=== PATIENT | female | born 1960 | race African-American/Black ===

== ENCOUNTER 2016-08-02 11:25 | Emergency (ER) | payer MEDICAID ==
[~2016-08-02] VITALS: Ht 162.6 cm; Wt 55.0 kg
[2016-08-02] MEDS ORDERED: KETOROLAC 30MG/ML VIAL IM STA (12:12)
[2016-08-02 14:24] VITALS: BP 125/74
== END 2016-08-02 14:25 | disposition home or self-care (01) ==
LOC: ER 12:37
DX: R05 Cough (principal); M94.0 Chondrocostal junction syndrome [Tietze]; F31.9 Bipolar disorder, unspecified; F12.10 Cannabis abuse, uncomplicated; F14.10 Cocaine abuse, uncomplicated
CPT/HCPCS: 71010; 93005; 96372; 99284; J1885; Z7610

== ENCOUNTER 2017-05-27 18:17 | Emergency (ER) | payer MEDICAID ==
[~2017-05-27] VITALS: Ht 162.6 cm; Wt 64.0 kg
[~2017-05-27 18:17] MED LIST: FOLI-43 PO; PNV1TABL76 PO; THIA100T13 PO
[2017-05-27 22:42] LABS: *AMPHETAMINES SCREEN URINE NEGATIVE (NEGATIVE); *BARBITURATES SCREEN URINE NEGATIVE (NEGATIVE); *BENZODIAZEPINES SCREEN URINE NEGATIVE (NEGATIVE); *COCAINE SCREEN URINE PRESUMTIVE POSITIVE (NEGATIVE); CANNABINOID URINE SCREEN NEGATIVE (NEGATIVE); METHADONE URINE SCREEN NEGATIVE (NEGATIVE); OPIATES URINE SCREEN NEGATIVE (NEGATIVE); PHENCYCLIDINE URINE SCREEN NEGATIVE (NEGATIVE)
[2017-05-27 23:05] LABS: BASOPHILS % 0.8 % (0.0-2.0); EOSINOPHILS % 3.3 % (0.0-5.0); HEMATOCRIT. 36.8 % (36.0-48.0); HEMOGLOBIN. 12.7 g/dL (12.0-16.0); LYMPHOCYTES % 40.2 % (20.0-50.0); MEAN CORPUSCULAR HEMOGLOBIN 35.5 pg (28.0-32.0); MEAN CORPUSCULAR VOLUME 102.4 fL (81.0-99.0); MEAN PLATELET VOLUME 7.2 fl (7.4-10.4); MONOCYTES % 12.2 % (2.0-8.0); NEUTROPHILS % 43.5 % (40.0-76.0); PLATELET 175 x1000/uL (130-400); RED BLOOD CELL COUNT 3.59 mill/uL (4.2-5.4); RED CELL DISTRIBUTION WIDTH 18.3 % (11.6-14.6)
[2017-05-27 23:10] LABS: CHLORIDE 108 mEq/L (98-107)
[2017-05-27 23:23] LABS: ETHANOL BLOOD 264 mg/dL
[2017-05-28] MEDS ORDERED: KETOROLAC 30MG/ML VIAL IV SCH (05:24)
[2017-05-28] MEDS ORDERED: KETOROLAC 30MG/ML VIAL IM SCH (05:45)
[2017-05-28 05:50] VITALS: BP 121/78
== END 2017-05-28 05:58 | disposition home or self-care (01) ==
LOC: ER 18:17
DX: S39.012A Strain of muscle, fascia and tendon of lower back, initial encounter (principal); M25.532 Pain in left wrist; M25.551 Pain in right hip; F10.129 Alcohol abuse with intoxication, unspecified; I10 Essential (primary) hypertension; F31.9 Bipolar disorder, unspecified; G43.909 Migraine, unspecified, not intractable, without status migrainosus; Y90.9 Presence of alcohol in blood, level not specified; Z90.49 Acquired absence of other specified parts of digestive tract; V03.10XA Pedestrian on foot injured in collision with car, pick-up truck or van in traffic accident, initial encounter; Y93.89 Activity, other specified; Y92.488 Other paved roadways as the place of occurrence of the external cause
CPT/HCPCS: 36415; 70450; 70490; 71111; 73110; 73502; 80048; 80305; 85025; 96372; 99285; G0482; J1885; Z7610

== ENCOUNTER 2017-11-01 18:58 | Emergency (ER) | payer MEDICAID, OTHER ==
[~2017-11-01] VITALS: Ht 157.5 cm; Wt 63.0 kg
[2017-11-01] MEDS ORDERED: KETOROLAC 60MG/2ML VIAL IM ONE (20:30)
[2017-11-01 21:36] LABS: CLARITY URINE CLOUDY (CLEAR); COLOR URINE DARK YELLOW (YELLOW); KETONES URINE TRACE (NEGATIVE); LEUKOCYTE ESTERASE URINE 2+ (NEGATIVE); NITRITE URINE NEGATIVE (NEGATIVE); OCCULT BLOOD URINE NEGATIVE (NEGATIVE); PROTEIN URINE TRACE (NEGATIVE); SPECIFIC GRAVITY URINE 1.036 (1.005-1.030)
[2017-11-01 23:37] LABS: EOSINOPHILS % 2.8 % (0.0-5.0); HEMOGLOBIN. 13.1 g/dL (12.0-16.0); LYMPHOCYTES % 47.7 % (20.0-50.0); MEAN CORPUSCULAR VOLUME 98.7 fL (81.0-99.0); MEAN PLATELET VOLUME 8.1 fl (7.4-10.4); MONOCYTES % 13.7 % (2.0-8.0); NEUTROPHILS % 34.8 % (40.0-76.0); PLATELET 139 x1000/uL (130-400); RED BLOOD CELL COUNT 3.85 mill/uL (4.2-5.4); RED CELL DISTRIBUTION WIDTH 13.8 % (11.6-14.6)
[2017-11-01 23:42] LABS: CHLORIDE 103 mEq/L (98-107)
[2017-11-02 00:55] VITALS: BP 121/78
== END 2017-11-02 00:55 | disposition home or self-care (01) ==
LOC: ER 19:04
DX: N30.90 Cystitis, unspecified without hematuria (principal)
CPT/HCPCS: 36415; 74176; 80053; 81003; 85025; 96372; 99285; J1885; Z7610

== ENCOUNTER 2018-03-27 23:07 | Emergency (ER) | payer MEDICAID ==
[~2018-03-27] VITALS: Ht 162.6 cm; Wt 71.0 kg
[2018-03-28 01:45] VITALS: BP 142/94
== END 2018-03-28 05:39 | disposition home or self-care (01) ==
LOC: ER 23:07
DX: S50.01XA Contusion of right elbow, initial encounter (principal); S30.0XXA Contusion of lower back and pelvis, initial encounter; I10 Essential (primary) hypertension; F12.10 Cannabis abuse, uncomplicated; F17.200 Nicotine dependence, unspecified, uncomplicated; Z90.49 Acquired absence of other specified parts of digestive tract; Z98.890 Other specified postprocedural states; Y04.2XXA Assault by strike against or bumped into by another person, initial encounter; Y93.89 Activity, other specified; Y92.018 Other place in single-family (private) house as the place of occurrence of the external cause
CPT/HCPCS: 72100; 73070; 99283

== ENCOUNTER 2018-04-17 20:58 | Emergency (ER) | payer MEDICAID ==
[~2018-04-17] VITALS: Ht 167.6 cm; Wt 68.0 kg
[2018-04-17] MEDS ORDERED: KETOROLAC 30MG/ML VIAL IM ONE (22:45)
[2018-04-18 00:23] VITALS: BP 105/69
== END 2018-04-18 00:54 | disposition home or self-care (01) ==
LOC: ER 20:58
DX: J02.9 Acute pharyngitis, unspecified (principal); F41.9 Anxiety disorder, unspecified; F31.9 Bipolar disorder, unspecified; F17.210 Nicotine dependence, cigarettes, uncomplicated; F14.10 Cocaine abuse, uncomplicated; Z90.49 Acquired absence of other specified parts of digestive tract; Z98.890 Other specified postprocedural states
CPT/HCPCS: 87070; 87430; 96372; 99283; J1885

== ENCOUNTER 2018-05-01 20:45 | Emergency (ER) | payer MEDICAID ==
[~2018-05-01] VITALS: Ht 162.6 cm; Wt 77.0 kg
[2018-05-01 20:53] VITALS: BP 148/84
== END 2018-05-02 00:25 | disposition left against medical advice (07) ==
LOC: ER 20:45
DX: Z53.21 Procedure and treatment not carried out due to patient leaving prior to being seen by health care provider (principal)

== ENCOUNTER 2018-07-01 16:32 | Emergency (ER) | payer MEDICAID ==
[~2018-07-01] VITALS: Ht 167.6 cm; Wt 75.0 kg
[2018-07-01 19:24] VITALS: BP 125/77
== END 2018-07-01 19:27 | disposition home or self-care (01) ==
LOC: ER 18:36
DX: H10.023 Other mucopurulent conjunctivitis, bilateral (principal); J06.9 Acute upper respiratory infection, unspecified; Z87.828 Personal history of other (healed) physical injury and trauma; Z98.890 Other specified postprocedural states
CPT/HCPCS: 99283

== ENCOUNTER 2018-07-18 19:17 | Emergency (ER) | payer MEDICAID ==
[~2018-07-18] VITALS: Ht 167.6 cm; Wt 58.0 kg
[2018-07-18] MEDS ORDERED: FLUORESCEIN SODIUM 1MG/STRIP RIGHTEYE ONE (21:00)
[2018-07-18] MEDS ORDERED: TETRACAINE 0.5% OPHTH DROPS 4ML RIGHTEYE ONE (21:00)
[2018-07-19 00:38] VITALS: BP 119/68
== END 2018-07-19 00:39 | disposition home or self-care (01) ==
LOC: ER 19:17
DX: S05.01XA Injury of conjunctiva and corneal abrasion without foreign body, right eye, initial encounter (principal); S00.11XA Contusion of right eyelid and periocular area, initial encounter; H11.31 Conjunctival hemorrhage, right eye; F31.9 Bipolar disorder, unspecified; F14.10 Cocaine abuse, uncomplicated; F12.10 Cannabis abuse, uncomplicated; F17.200 Nicotine dependence, unspecified, uncomplicated; Z79.899 Other long term (current) drug therapy; Z90.49 Acquired absence of other specified parts of digestive tract; Y08.89XA Assault by other specified means, initial encounter; Y93.89 Activity, other specified; Y92.89 Other specified places as the place of occurrence of the external cause; Y99.8 Other external cause status
CPT/HCPCS: 70486; 99284

== ENCOUNTER 2018-09-22 13:20 | Emergency (ER) | payer MEDICAID ==
[~2018-09-22] VITALS: Ht 162.6 cm; Wt 65.0 kg
[2018-09-22 13:39] VITALS: BP 131/73
== END 2018-09-22 16:06 | disposition left against medical advice (07) ==
LOC: ER 13:20
DX: M79.605 Pain in left leg (principal); Z53.21 Procedure and treatment not carried out due to patient leaving prior to being seen by health care provider

== ENCOUNTER 2018-09-22 19:31 | Emergency (ER) | payer MEDICAID ==
[~2018-09-22] VITALS: Ht 160 cm; Wt 65.1 kg
[2018-09-22 19:34] VITALS: BP 100/72
== END 2018-09-22 20:34 | disposition home or self-care (01) ==
LOC: ER 19:31
DX: S80.12XA Contusion of left lower leg, initial encounter (principal); K14.0 Glossitis; R58 Hemorrhage, not elsewhere classified; F31.9 Bipolar disorder, unspecified; F17.200 Nicotine dependence, unspecified, uncomplicated; F14.10 Cocaine abuse, uncomplicated; F12.10 Cannabis abuse, uncomplicated; Z90.49 Acquired absence of other specified parts of digestive tract; Z79.899 Other long term (current) drug therapy; W19.XXXA Unspecified fall, initial encounter; Y93.89 Activity, other specified; Y92.89 Other specified places as the place of occurrence of the external cause; Y99.8 Other external cause status
CPT/HCPCS: 99283

== ENCOUNTER 2018-11-23 22:05 | Emergency (ER) | payer MEDICAID ==
[~2018-11-23] VITALS: Ht 157.5 cm; Wt 64.0 kg
[2018-11-23] MEDS ORDERED: IBUPROFEN 600MG TABLET PO ONE (23:15)
[2018-11-23] MEDS ORDERED: DIPHENHYDRAMINE 25MG CAPSULE PO ONE (23:15)
[2018-11-23] MEDS ORDERED: KETOROLAC 60MG/2ML VIAL IM ONE (23:15)
[2018-11-24 00:21] VITALS: BP 155/89
== END 2018-11-24 00:23 | disposition home or self-care (01) ==
LOC: ER 22:05
DX: S60.562A Insect bite (nonvenomous) of left hand, initial encounter (principal); S60.561A Insect bite (nonvenomous) of right hand, initial encounter; S80.862A Insect bite (nonvenomous), left lower leg, initial encounter; S80.861A Insect bite (nonvenomous), right lower leg, initial encounter; F31.9 Bipolar disorder, unspecified; L29.9 Pruritus, unspecified; W57.XXXA Bitten or stung by nonvenomous insect and other nonvenomous arthropods, initial encounter; Y93.89 Activity, other specified; Y92.89 Other specified places as the place of occurrence of the external cause; Y99.8 Other external cause status
CPT/HCPCS: 96372; 99283; J1885; Q0163

== ENCOUNTER → 2018-12-13 | Emergency (ER) | payer MEDICAID | LOC: ER 11:44 | DX: M79.643 Pain in unspecified hand (principal); Z53.21 Procedure and treatment not carried out due to patient leaving prior to being seen by health care provider ==

== ENCOUNTER 2019-01-24 22:34 | Emergency (ER) | payer MEDICAID ==
[~2019-01-24] VITALS: Ht 160 cm; Wt 61.0 kg
[2019-01-25] MEDS ORDERED: KETOROLAC 60MG/2ML VIAL IM STA (02:21)
[2019-01-25] MEDS ORDERED: AMOXICILLIN/POTASSIUM CLAVULANATE 875/125MG TAB PO ONE (02:30)
[2019-01-25 03:02] VITALS: BP 135/108
== END 2019-01-25 03:04 | disposition home or self-care (01) ==
LOC: ER 22:34
DX: K04.7 Periapical abscess without sinus (principal); K02.9 Dental caries, unspecified; F12.10 Cannabis abuse, uncomplicated; F17.210 Nicotine dependence, cigarettes, uncomplicated; Z93.3 Colostomy status; Z90.49 Acquired absence of other specified parts of digestive tract; Z98.890 Other specified postprocedural states; Z86.19 Personal history of other infectious and parasitic diseases; Z87.828 Personal history of other (healed) physical injury and trauma
CPT/HCPCS: 96372; 99283; J1885

== ENCOUNTER 2019-04-21 00:08 | Emergency (ER) | payer MEDICAID ==
[~2019-04-21] VITALS: Ht 157.5 cm; Wt 62.0 kg
[2019-04-21] MEDS ORDERED: IBUPROFEN 600MG TABLET PO ONE (02:15)
[2019-04-21] MEDS ORDERED: HYDROCODONE/ACETAMINOPHEN 5/325MG TABLET PO ONE (05:30)
[2019-04-21 06:39] VITALS: BP 122/71
== END 2019-04-21 06:40 | disposition home or self-care (01) ==
LOC: ER 00:44
DX: M79.644 Pain in right finger(s) (principal); F14.10 Cocaine abuse, uncomplicated; F12.10 Cannabis abuse, uncomplicated; Z87.828 Personal history of other (healed) physical injury and trauma; Z90.49 Acquired absence of other specified parts of digestive tract; Z86.19 Personal history of other infectious and parasitic diseases
CPT/HCPCS: 73130; 99283

== ENCOUNTER 2019-04-22 17:09 | Emergency (ER) | payer MEDICAID ==
[~2019-04-22] VITALS: Ht 160 cm; Wt 56.0 kg
[2019-04-22 17:34] VITALS: BP 96/56
== END 2019-04-22 22:41 | disposition left against medical advice (07) ==
LOC: ER 17:17
DX: J11.1 Influenza due to unidentified influenza virus with other respiratory manifestations (principal); Z53.21 Procedure and treatment not carried out due to patient leaving prior to being seen by health care provider

== ENCOUNTER 2019-05-11 19:48 | Emergency (ER) | payer MEDICAID ==
[~2019-05-11] VITALS: Ht 165.1 cm; Wt 57.0 kg
[2019-05-12 01:40] VITALS: BP 137/85
== END 2019-05-12 02:03 | disposition home or self-care (01) ==
LOC: ER 19:48
DX: J40 Bronchitis, not specified as acute or chronic (principal); F15.10 Other stimulant abuse, uncomplicated; F14.10 Cocaine abuse, uncomplicated; Z93.3 Colostomy status; Z98.890 Other specified postprocedural states; Z87.828 Personal history of other (healed) physical injury and trauma
CPT/HCPCS: 71045; 99283

== ENCOUNTER 2019-08-03 17:04 | Emergency (ER) | payer MEDICAID ==
[~2019-08-03] VITALS: Ht 160 cm; Wt 47.0 kg
[2019-08-03] MEDS ORDERED: ACETAMINOPHEN 325MG TABLET PO ONE (17:30)
[2019-08-03 17:53] VITALS: BP 132/60
== END 2019-08-03 17:54 | disposition home or self-care (01) ==
LOC: ER 17:04
DX: M25.532 Pain in left wrist (principal); F14.10 Cocaine abuse, uncomplicated; F12.10 Cannabis abuse, uncomplicated; Z93.3 Colostomy status; Z79.899 Other long term (current) drug therapy
CPT/HCPCS: 29125; 99283

== ENCOUNTER 2019-08-23 22:29 | Emergency (ER) | payer MEDICAID ==
[~2019-08-23] VITALS: Ht 160 cm; Wt 55.8 kg
[2019-08-23] MEDS ORDERED: IBUPROFEN 600MG TABLET PO ONE (23:45)
[2019-08-24 00:50] VITALS: BP 151/91
== END 2019-08-24 00:58 | disposition home or self-care (01) ==
LOC: ER 22:29
DX: R10.9 Unspecified abdominal pain (principal); M79.18 Myalgia, other site; F41.9 Anxiety disorder, unspecified; F31.9 Bipolar disorder, unspecified; Z90.49 Acquired absence of other specified parts of digestive tract; F14.10 Cocaine abuse, uncomplicated; F12.10 Cannabis abuse, uncomplicated; Z79.899 Other long term (current) drug therapy
CPT/HCPCS: 71101; 72100; 99284

== ENCOUNTER 2020-01-03 15:22 | Emergency (ER) | payer MEDICAID ==
[~2020-01-03] VITALS: Ht 160 cm; Wt 65.0 kg
[2020-01-03 15:28] VITALS: BP 105/77
[2020-01-03] MEDS ORDERED: BACITRACIN ZINC OINT UDPKT TOP ONE (15:45)
== END 2020-01-03 16:57 | disposition home or self-care (01) ==
LOC: ER 16:30
DX: S49.81XA Other specified injuries of right shoulder and upper arm, initial encounter (principal); S80.212A Abrasion, left knee, initial encounter; F41.9 Anxiety disorder, unspecified; F32.9 Major depressive disorder, single episode, unspecified; F17.200 Nicotine dependence, unspecified, uncomplicated; W01.0XXA Fall on same level from slipping, tripping and stumbling without subsequent striking against object, initial encounter; Y93.9 Activity, unspecified; Y92.9 Unspecified place or not applicable; Z93.3 Colostomy status; Z90.49 Acquired absence of other specified parts of digestive tract
CPT/HCPCS: 29105; 73030; 99283

== ENCOUNTER 2020-02-26 11:07 | Emergency (ER) | payer MEDICAID ==
[~2020-02-26] VITALS: Ht 162.6 cm; Wt 59.0 kg
[2020-02-26 11:31] VITALS: BP 126/80
== END 2020-02-26 14:01 | disposition left against medical advice (07) ==
LOC: ER 11:07
DX: Z53.21 Procedure and treatment not carried out due to patient leaving prior to being seen by health care provider (principal)

== ENCOUNTER 2020-06-23 11:50 | Emergency (ER) | payer MEDICAID ==
[~2020-06-23] VITALS: Ht 165.1 cm; Wt 85.0 kg
[2020-06-23] MEDS ORDERED: ACETAMINOPHEN 325MG TABLET PO ONE (12:15)
[2020-06-23] MEDS ORDERED: DEXAMETHASONE 0.5MG/5ML ORAL SYR PO ONE (12:15)
[2020-06-23] MEDS ORDERED: DEXAMETHASONE 10 MG/ML VIAL PO NR (12:30)
[2020-06-23 18:49] VITALS: BP 116/64
[2020-06-23] MEDS ORDERED: ERYT1OIN6 EACHEYE (19:13)
== END 2020-06-23 19:05 | disposition home or self-care (01) ==
LOC: ER 11:50
DX: J06.9 Acute upper respiratory infection, unspecified (principal); F14.10 Cocaine abuse, uncomplicated; F12.10 Cannabis abuse, uncomplicated; F10.10 Alcohol abuse, uncomplicated; K76.9 Liver disease, unspecified; Z20.822 Contact with and (suspected) exposure to COVID-19; Y90.9 Presence of alcohol in blood, level not specified
CPT/HCPCS: 71045; 87070; 87430; 99284; C9803; J1100; U0003; J8540

== ENCOUNTER 2021-01-21 13:46 | Emergency (ER) | payer MEDICAID ==
[~2021-01-21] VITALS: Ht 167.6 cm; Wt 66.0 kg
[~2021-01-21 13:46] MED LIST changes: +ERYT1OIN6 EACHEYE
[2021-01-21] MEDS ORDERED: TETANUS, DIPHTHERIA, PERTUSSIS VAC/PF 0.5ML (>10YR OLD) IM ONE (15:30)
[2021-01-21] MEDS ORDERED: IBUPROFEN 600MG TABLET PO ONE (15:30)
[2021-01-21 15:50] VITALS: BP 116/80
[2021-01-21] MEDS ORDERED: BACITRACIN ZINC OINT UDPKT TOP ONE (17:15)
[2021-01-21] MEDS ORDERED: NAPR-681 PO (17:16)
[2021-01-21] MEDS ORDERED: SULF1TAB48 PO (17:16)
[2021-01-21] MEDS ORDERED: BO1 TP (17:16)
== END 2021-01-21 17:28 | disposition home or self-care (01) ==
LOC: ER 13:46
DX: M79.644 Pain in right finger(s) (principal); F12.10 Cannabis abuse, uncomplicated
CPT/HCPCS: 73140; 90471; 90715; 99283; Z7610

== ENCOUNTER 2021-01-24 13:14 | Emergency (ER) | payer MEDICAID ==
[~2021-01-24] VITALS: Ht 165.1 cm; Wt 54.0 kg
[~2021-01-24 13:14] MED LIST changes: +BO1 TP; +NAPR-681 PO; +SULF1TAB48 PO
[2021-01-24] MEDS ORDERED: IBUPROFEN 400MG TABLET PO ONE (14:00)
[2021-01-24] MEDS ORDERED: ACETAMINOPHEN 325MG TABLET PO ONE (14:00)
[2021-01-24 14:28] VITALS: BP 134/87
[2021-01-24] MEDS ORDERED: ACET-2708 MT (14:51)
[2021-01-24] MEDS ORDERED: NAPR-1176 MT (14:51)
[2021-01-24] MEDS ORDERED: AMOX-424 MT (14:51)
== END 2021-01-24 15:10 | disposition home or self-care (01) ==
LOC: ER 13:14
DX: K08.89 Other specified disorders of teeth and supporting structures (principal); R68.84 Jaw pain; F12.10 Cannabis abuse, uncomplicated; Z86.19 Personal history of other infectious and parasitic diseases
CPT/HCPCS: 81025; 99283

== ENCOUNTER 2021-03-08 13:25 | Emergency (ER) | payer MEDICAID ==
[~2021-03-08] VITALS: Ht 165.1 cm; Wt 50.0 kg
[~2021-03-08 13:25] MED LIST changes: +ACET-2708 MT; +AMOX-424 MT; +NAPR-1176 MT
[2021-03-08] MEDS ORDERED: NAPR-681 PO (16:17)
[2021-03-08 16:21] VITALS: BP 113/73
== END 2021-03-08 16:20 | disposition home or self-care (01) ==
LOC: ER 13:25
DX: S80.02XA Contusion of left knee, initial encounter (principal); F12.10 Cannabis abuse, uncomplicated; Z79.899 Other long term (current) drug therapy; W18.30XA Fall on same level, unspecified, initial encounter; Y93.89 Activity, other specified; Y92.89 Other specified places as the place of occurrence of the external cause; Y99.8 Other external cause status
CPT/HCPCS: 73562; 73610; 73630; 99284

== ENCOUNTER 2021-07-19 15:06 | Emergency (ER) | payer MEDICAID, OTHER ==
[~2021-07-19] VITALS: Ht 160 cm; Wt 54.0 kg
[2021-07-19 16:04] VITALS: BP 106/73
== END 2021-07-19 19:04 | disposition left against medical advice (07) ==
LOC: ER 15:06
DX: Z53.21 Procedure and treatment not carried out due to patient leaving prior to being seen by health care provider (principal)

== ENCOUNTER 2021-08-06 19:33 | Emergency (ER) | payer OTHER ==
[~2021-08-06] VITALS: Ht 157.5 cm; Wt 59.0 kg
[2021-08-06] MEDS ORDERED: KETOROLAC 60MG/2ML VIAL IM ONE (22:45)
[2021-08-06] MEDS ORDERED: CYCLOBENZAPRINE 10MG TABLET PO ONE (22:45)
[2021-08-07 01:59] VITALS: BP 125/67
[2021-08-07] MEDS ORDERED: CYCL10TA7 MT (02:01)
[2021-08-07] MEDS ORDERED: IBUP-2030 MT (02:01)
== END 2021-08-07 02:09 | disposition home or self-care (01) ==
LOC: ER 19:33
DX: S20.219A Contusion of unspecified front wall of thorax, initial encounter (principal); F12.10 Cannabis abuse, uncomplicated; Z79.899 Other long term (current) drug therapy; Y04.0XXA Assault by unarmed brawl or fight, initial encounter; Y93.89 Activity, other specified; Y92.89 Other specified places as the place of occurrence of the external cause; Y99.8 Other external cause status
CPT/HCPCS: 71045; 72125; 93005; 96372; 99285; J1885

== ENCOUNTER 2021-09-29 16:56 | Emergency (ER) | payer MEDICAID, OTHER ==
[~2021-09-29] VITALS: Ht 157.5 cm; Wt 52.0 kg
[~2021-09-29 16:56] MED LIST changes: +CYCL10TA21 MT; +IBUP-2030 MT; -NAPR-1176 MT
[2021-09-29 17:22] VITALS: BP 110/76
== END 2021-09-29 18:00 | disposition left against medical advice (07) ==
LOC: ER 16:56
DX: Z53.21 Procedure and treatment not carried out due to patient leaving prior to being seen by health care provider (principal)

== ENCOUNTER 2021-10-03 13:17 | Emergency (ER) | payer MEDICAID ==
[2021-10-03] MEDS ORDERED: ACET-2708 MT (17:12)
[2021-10-03] MEDS ORDERED: P50 MT (17:12)
[2021-10-03] MEDS ORDERED: ALBU18HF2 IH (17:12)
== END 2021-10-03 14:18 | disposition left against medical advice (07) ==
LOC: ER 13:17
DX: Z53.21 Procedure and treatment not carried out due to patient leaving prior to being seen by health care provider (principal)

== ENCOUNTER 2021-10-03 15:12 | Emergency (ER) | payer MEDICAID ==
[~2021-10-03] VITALS: Ht 160 cm; Wt 70.0 kg
[2021-10-03] MEDS ORDERED: ACETAMINOPHEN 325MG TABLET PO ONE (16:45)
[2021-10-03] MEDS ORDERED: ALBUTEROL (0.083%) 2.5MG/3ML NEB HHN ONE (16:45)
[2021-10-03] MEDS ORDERED: PREDNISONE 20MG TABLET PO ONE (16:45)
[2021-10-03] MEDS ORDERED: ALBU18HF2 IH (17:12)
[2021-10-03] MEDS ORDERED: P50 MT (17:12)
[2021-10-03] MEDS ORDERED: ACET-2708 MT (17:12)
[2021-10-03 17:44] VITALS: BP 112/75
== END 2021-10-03 17:44 | disposition home or self-care (01) ==
LOC: ER 15:12
DX: B34.9 Viral infection, unspecified (principal); R06.2 Wheezing; R05.9 Cough, unspecified; F12.10 Cannabis abuse, uncomplicated; F17.210 Nicotine dependence, cigarettes, uncomplicated; Z20.822 Contact with and (suspected) exposure to COVID-19; Z90.49 Acquired absence of other specified parts of digestive tract; Z71.6 Tobacco abuse counseling
CPT/HCPCS: 71045; 94640; 99283; J7512; Z7610; 94664

== ENCOUNTER 2021-11-19 13:21 | Emergency (ER) | payer MEDICAID, OTHER ==
[~2021-11-19] VITALS: Ht 160 cm; Wt 53.0 kg
[~2021-11-19 13:21] MED LIST changes: +ALBU18HF2 IH; +P50 MT
[2021-11-19 13:56] VITALS: BP 114/90
== END 2021-11-19 20:29 | disposition left against medical advice (07) ==
LOC: ER 13:21
DX: Z53.21 Procedure and treatment not carried out due to patient leaving prior to being seen by health care provider (principal)

== ENCOUNTER 2022-01-26 19:22 | Emergency (ER) | payer OTHER ==
[~2022-01-26] VITALS: Ht 162.6 cm; Wt 53.4 kg
[2022-01-26 19:33] VITALS: BP 99/76
[2022-01-26 22:07] LABS: HEMATOCRIT. 38.7 % (36.0-48.0); HEMOGLOBIN. 13.3 g/dL (12.0-16.0); MEAN CORPUSCULAR HEMOGLOBIN 34.3 pg (28.0-32.0); MEAN CORPUSCULAR VOLUME 99.9 fL (81.0-99.0); MEAN PLATELET VOLUME 8.6 fl (7.4-10.4); PLATELET 102 x1000/uL (130-400); RED BLOOD CELL COUNT 3.88 mill/uL (4.2-5.4); RED CELL DISTRIBUTION WIDTH 14.6 % (11.6-14.6)
[2022-01-26 22:12] LABS: CLARITY URINE TURBID (CLEAR); COLOR URINE DARK YELLOW (YELLOW); KETONES URINE TRACE (NEGATIVE); LEUKOCYTE ESTERASE URINE 3+ (NEGATIVE); NITRITE URINE POSITIVE (NEGATIVE); OCCULT BLOOD URINE 1+ (NEGATIVE); PH URINE 5.5 (4.5-8.0); PROTEIN URINE 2+ (NEGATIVE); SPECIFIC GRAVITY URINE 1.019 (1.005-1.030)
[2022-01-26 22:17] LABS: CHLORIDE 95 mEq/L (98-107); INR 1.4; PROTHROMBIN TIME 14.3 sec (9.6-11.0)
[2022-01-26 22:23] LABS: PLATELET ESTIMATE DECREASED
[2022-01-26] MEDS ORDERED: PREDNISONE 20MG TABLET PO ONE (22:45)
[2022-01-26] MEDS ORDERED: ALBUTEROL (0.083%) 2.5MG/3ML NEB HHN ONE (22:45)
[2022-01-26] MEDS ORDERED: ACETAMINOPHEN 500MG TABLET PO ONE (22:45)
[2022-01-26] MEDS ORDERED: POTASSIUM CHLORIDE 20MEQ TABLET SR PO ONE (23:00)
[2022-01-26] MEDS ORDERED: CEFTRIAXONE SODIUM 1 G/VIAL IM ONE (23:30)
[2022-01-27] MEDS ORDERED: P50 MT (00:45)
[2022-01-27] MEDS ORDERED: POTA-205 MT (00:45)
[2022-01-27] MEDS ORDERED: ALBU18HF2 IH (00:45)
[2022-01-27] MEDS ORDERED: CEPH500C2 MT (00:45)
[2022-01-27] MEDS ORDERED: ACET-2708 MT (00:46)
== END 2022-01-27 01:21 | disposition home or self-care (01) ==
LOC: ER 19:22
DX: R79.89 Other specified abnormal findings of blood chemistry (principal); E87.6 Hypokalemia; N39.0 Urinary tract infection, site not specified; D64.9 Anemia, unspecified; F31.9 Bipolar disorder, unspecified; Z87.19 Personal history of other diseases of the digestive system; F12.10 Cannabis abuse, uncomplicated; Z79.899 Other long term (current) drug therapy; Z20.822 Contact with and (suspected) exposure to COVID-19
CPT/HCPCS: 36415; 71045; 76705; 80053; 81003; 83690; 85025; 85610; 87086; 87426; 94640; 96372; 99285; C9803; J0696; J7512; Z7610

== ENCOUNTER 2022-06-18 16:08 | Emergency (ER) | payer MEDICAID, OTHER ==
[~2022-06-18] VITALS: Ht 162.6 cm; Wt 59.0 kg
[~2022-06-18 16:08] MED LIST changes: +CEPH500C2 MT; +POTA-205 MT
[2022-06-18] MEDS ORDERED: CYCLOBENZAPRINE 10MG TABLET PO ONE (18:30)
[2022-06-18] MEDS ORDERED: KETOROLAC 60MG/2ML VIAL IM ONE (18:30)
[2022-06-18 20:00] VITALS: BP 112/68
[2022-06-18] MEDS ORDERED: DICL75TA5 MT (20:16)
[2022-06-18] MEDS ORDERED: CYCL5TAB MT (20:16)
== END 2022-06-18 20:00 | disposition home or self-care (01) ==
LOC: ER 16:08
DX: M54.50 Low back pain, unspecified (principal); M25.512 Pain in left shoulder; D64.9 Anemia, unspecified; F31.9 Bipolar disorder, unspecified; Z87.19 Personal history of other diseases of the digestive system; I10 Essential (primary) hypertension; F12.10 Cannabis abuse, uncomplicated; Z79.899 Other long term (current) drug therapy
CPT/HCPCS: 71100; 72100; 73030; 96372; 99284; J1885; Z7610

== ENCOUNTER 2022-07-07 15:59 | Emergency (ER) | payer OTHER ==
[~2022-07-07] VITALS: Ht 152.4 cm; Wt 60.0 kg
[~2022-07-07 15:59] MED LIST changes: +CYCL5TAB MT; +DICL75TA5 MT
[2022-07-07 16:10] VITALS: BP 128/93
== END 2022-07-07 20:15 | disposition left against medical advice (07) ==
LOC: ER 15:59
DX: Z53.21 Procedure and treatment not carried out due to patient leaving prior to being seen by health care provider (principal)
CPT/HCPCS: 99281

== ENCOUNTER 2022-07-11 19:13 | Emergency (ER) | payer OTHER ==
[~2022-07-11] VITALS: Ht 162.6 cm; Wt 53.3 kg
[2022-07-11 19:37] VITALS: BP 124/83
[2022-07-11 23:58] LABS: BASOPHILS % 0.4 % (0.0-2.0); EOSINOPHILS % 1.2 % (0.0-5.0); HEMATOCRIT. 35.4 % (36.0-48.0); HEMOGLOBIN. 12.4 g/dL (12.0-16.0); LYMPHOCYTES % 21.9 % (20.0-50.0); MEAN CORPUSCULAR HEMOGLOBIN 33.6 pg (28.0-32.0); MEAN CORPUSCULAR VOLUME 95.8 fL (81.0-99.0); MEAN PLATELET VOLUME 8.1 fl (7.4-10.4); MONOCYTES % 14.3 % (2.0-8.0); NEUTROPHILS % 62.2 % (40.0-76.0); PLATELET 122 x1000/uL (130-400)
[2022-07-12 00:05] LABS: CHLORIDE 99 mEq/L (98-107)
[2022-07-12] MEDS ORDERED: SODIUM CHLORIDE 0.9% 1,000 ML IV ONE (00:15)
[2022-07-12] MEDS ORDERED: POTASSIUM CHLORIDE 20MEQ TABLET SR PO ONE (00:15)
[2022-07-12 00:24] LABS: CLARITY URINE TURBID (CLEAR); COLOR URINE DARK YELLOW (YELLOW); KETONES URINE NEGATIVE (NEGATIVE); LEUKOCYTE ESTERASE URINE 3+ (NEGATIVE); NITRITE URINE NEGATIVE (NEGATIVE); OCCULT BLOOD URINE TRACE (NEGATIVE); PH URINE 7.5 (4.5-8.0); PROTEIN URINE 1+ (NEGATIVE); SPECIFIC GRAVITY URINE 1.011 (1.005-1.030); UROBILINOGEN URINE >8.0 E.U./dL (0.2-1.0)
[2022-07-12] MEDS ORDERED: METR-167 MT (02:56)
[2022-07-12] MEDS ORDERED: IBUP-2028 MT (02:56)
[2022-07-12] MEDS ORDERED: AMOX-494 MT (02:56)
== END 2022-07-12 03:47 | disposition home or self-care (01) ==
LOC: ER 19:13
DX: N39.0 Urinary tract infection, site not specified (principal); I10 Essential (primary) hypertension; Z79.899 Other long term (current) drug therapy
CPT/HCPCS: 36415; 70450; 71045; 80053; 81003; 83880; 84484; 85025; 87086; 93005; 96360; 99285; J7030; Z7610

== ENCOUNTER 2022-08-03 19:57 | Emergency (ER) | payer OTHER ==
[~2022-08-03] VITALS: Ht 157.5 cm; Wt 53.8 kg
[~2022-08-03 19:57] MED LIST changes: +AMOX-494 MT; +IBUP-2028 MT; +METR-167 MT
[2022-08-03 22:45] VITALS: BP 134/89
[2022-08-03] MEDS ORDERED: IBUPROFEN 400MG TABLET PO ONE (22:45)
[2022-08-03] MEDS ORDERED: CEFTRIAXONE SODIUM 1 G/VIAL IM ONE (22:45)
[2022-08-03 23:10] LABS: HEMATOCRIT. 34.6 % (36.0-48.0); HEMOGLOBIN. 11.7 g/dL (12.0-16.0); MEAN CORPUSCULAR HEMOGLOBIN 33.5 pg (28.0-32.0); MEAN CORPUSCULAR VOLUME 99.6 fL (81.0-99.0); MEAN PLATELET VOLUME 7.4 fl (7.4-10.4); PLATELET 143 x1000/uL (130-400); RED BLOOD CELL COUNT 3.48 mill/uL (4.2-5.4); RED CELL DISTRIBUTION WIDTH 16.6 % (11.6-14.6)
[2022-08-03 23:20] LABS: PLATELET ESTIMATE NORMAL
[2022-08-03 23:23] LABS: CHLORIDE 106 mEq/L (98-107)
[2022-08-04] MEDS ORDERED: POTASSIUM CHLORIDE 20MEQ TABLET SR PO ONE (01:00)
[2022-08-04] MEDS ORDERED: METR-167 MT (01:15)
[2022-08-04] MEDS ORDERED: DOXY100C5 MT (01:15)
[2022-08-04] MEDS ORDERED: CEPH500C2 MT (01:15)
[2022-08-04] MEDS ORDERED: IBUP-2028 MT (01:15)
[2022-08-04 01:34] LABS: CLARITY URINE CLOUDY (CLEAR); COLOR URINE DARK YELLOW (YELLOW); KETONES URINE TRACE (NEGATIVE); LEUKOCYTE ESTERASE URINE 2+ (NEGATIVE); NITRITE URINE NEGATIVE (NEGATIVE); OCCULT BLOOD URINE NEGATIVE (NEGATIVE); PH URINE 5.5 (4.5-8.0); PROTEIN URINE 1+ (NEGATIVE); SPECIFIC GRAVITY URINE 1.032 (1.005-1.030); UROBILINOGEN URINE >8.0 E.U./dL (0.2-1.0)
== END 2022-08-04 02:01 | disposition home or self-care (01) ==
LOC: ER 19:57
DX: M79.672 Pain in left foot (principal); R30.0 Dysuria; S92.302A Fracture of unspecified metatarsal bone(s), left foot, initial encounter for closed fracture; X58.XXXA Exposure to other specified factors, initial encounter; Y93.89 Activity, other specified; Y92.89 Other specified places as the place of occurrence of the external cause; Y99.8 Other external cause status; F41.9 Anxiety disorder, unspecified; F12.10 Cannabis abuse, uncomplicated; F10.229 Alcohol dependence with intoxication, unspecified; Y90.0 Blood alcohol level of less than 20 mg/100 ml
CPT/HCPCS: 29515; 36415; 73630; 80053; 81003; 84443; 84550; 85025; 87086; 96372; 99284; J0696; Z7610

== ENCOUNTER 2022-10-17 16:21 | Emergency (ER) | payer OTHER ==
[~2022-10-17] VITALS: Ht 165.1 cm; Wt 58.0 kg
[~2022-10-17 16:21] MED LIST changes: +DOXY100C5 MT
[2022-10-17 16:42] VITALS: BP 172/108; PULSE 92; RESP 20; TEMP 98.3; O2SAT 97
[2022-10-17 19:48] LABS: CLARITY URINE CLEAR (CLEAR); COLOR URINE YELLOW (YELLOW); KETONES URINE NEGATIVE (NEGATIVE); LEUKOCYTE ESTERASE URINE 2+ (NEGATIVE); NITRITE URINE NEGATIVE (NEGATIVE); OCCULT BLOOD URINE NEGATIVE (NEGATIVE); PH URINE 6.5 (4.5-8.0); PROTEIN URINE NEGATIVE (NEGATIVE); SPECIFIC GRAVITY URINE 1.004 (1.005-1.030)
[2022-10-17 19:57] LABS: *AMPHETAMINES SCREEN URINE NEGATIVE (NEGATIVE); *BARBITURATES SCREEN URINE NEGATIVE (NEGATIVE); *BENZODIAZEPINES SCREEN URINE NEGATIVE (NEGATIVE); *COCAINE SCREEN URINE PRESUMTIVE POSITIVE (NEGATIVE); CANNABINOID URINE SCREEN NEGATIVE (NEGATIVE); METHADONE URINE SCREEN NEGATIVE (NEGATIVE); OPIATES URINE SCREEN NEGATIVE (NEGATIVE); PHENCYCLIDINE URINE SCREEN NEGATIVE (NEGATIVE)
== END 2022-10-17 22:58 | disposition left against medical advice (07) ==
LOC: ER 16:21
DX: R10.2 Pelvic and perineal pain (principal); F12.10 Cannabis abuse, uncomplicated; Z53.21 Procedure and treatment not carried out due to patient leaving prior to being seen by health care provider; Z79.899 Other long term (current) drug therapy; Z98.890 Other specified postprocedural states
CPT/HCPCS: 80305; 81003; 99283

== ENCOUNTER 2022-12-04 14:15 | Emergency (ER) | payer OTHER ==
[~2022-12-04] VITALS: Ht 165.1 cm; Wt 52.0 kg
[2022-12-04 14:18] VITALS: BP 102/78; PULSE 115; RESP 20; TEMP 98.3; O2SAT 98
[2022-12-04] MEDS ORDERED: CYCLOBENZAPRINE 10MG TABLET PO ONE (15:45)
[2022-12-04] MEDS ORDERED: KETOROLAC 15MG/ML VIAL IM ONE (15:45)
[2022-12-04 16:09] LABS: BASOPHILS % 0.8 % (0.0-2.0); DIFFERENTIAL COMMENT 0; EOSINOPHILS % 0.7 % (0.0-5.0); HEMOGLOBIN. 14.3 g/dL (12.0-16.0); LYMPHOCYTES % 60.9 % (20.0-50.0); MEAN CORPUSCULAR HEMOGLOBIN 34.1 pg (28.0-32.0); MEAN CORPUSCULAR HGB CONC 34.1 g/dL (31.0-37.0); MEAN CORPUSCULAR VOLUME 100.1 fL (81.0-99.0); MEAN PLATELET VOLUME 7.9 fl (7.4-10.4); MONOCYTES % 9.5 % (2.0-8.0); NEUTROPHILS % 28.1 % (40.0-76.0); PLATELET 115 x1000/uL (130-400); RED CELL DISTRIBUTION WIDTH 15.2 % (11.6-14.6); WHITE BLOOD COUNT 3.8 x1000/uL (4.5-11.0)
[2022-12-04 16:14] LABS: INR 1.2; PROTHROMBIN TIME 12.8 sec (9.6-11.0)
[2022-12-04 16:15] LABS: CHLORIDE 106 mEq/L (98-107); INDEX HEMOLYSI 1 (1-3); INDEX ICTERIC 1 (1-4); INDEX LIPEMIC 1 (1-3); POTASSIUM 3.2 mEq/L (3.5-5.1); SODIUM 139 mEq/L (136-145)
[2022-12-04 16:23] LABS: ALANINE AMINOTRANSFERASE 53 IU/L (13-61); ALBUMIN 3.5 g/dL (3.4-5.0); ASPARTATE AMINOTRANSFERASE 143 IU/L (15-37); BILIRUBIN TOTAL 1.1 mg/dL (0.1-1.0); CALCIUM 8.4 mg/dL (8.5-10.1); CARBON DIOXIDE 31 mEq/L (21-32); CREATININE 0.9 mg/dL (0.6-1.3); GLUCOSE 86 mg/dL (70-105); PROTEIN TOTAL 9.3 g/dL (6.0-8.3); UREA NITROGEN BLOOD 11 mg/dL (7-21)
[2022-12-04] MEDS ORDERED: POTASSIUM CHLORIDE 20MEQ TABLET SR PO ONE (18:15)
== END 2022-12-04 18:40 | disposition left against medical advice (07) ==
LOC: ER 14:39
DX: R10.30 Lower abdominal pain, unspecified (principal); M54.9 Dorsalgia, unspecified; R25.2 Cramp and spasm
CPT/HCPCS: 99283; 80053; 83690; 85025; 85610; 86850; 86900; 86901; 36415; J1885

== ENCOUNTER 2022-12-14 12:32 | Emergency (ER) | payer OTHER ==
[~2022-12-14] VITALS: Ht 165.1 cm; Wt 54.0 kg
[2022-12-14 12:40] VITALS: BP 110/82; PULSE 97; RESP 20; TEMP 98.1; O2SAT 97
[2022-12-14 13:15] LABS: BASOPHILS % 1.4 % (0.0-2.0); EOSINOPHILS % 0.5 % (0.0-5.0); HEMATOCRIT. 36.3 % (36.0-48.0); HEMOGLOBIN. 12.3 g/dL (12.0-16.0); LYMPHOCYTES % 66.6 % (20.0-50.0); MEAN CORPUSCULAR HEMOGLOBIN 33.5 pg (28.0-32.0); MEAN CORPUSCULAR HGB CONC 33.9 g/dL (31.0-37.0); MEAN CORPUSCULAR VOLUME 98.6 fL (81.0-99.0); MEAN PLATELET VOLUME 8.1 fl (7.4-10.4); MONOCYTES % 9.8 % (2.0-8.0); NEUTROPHILS % 21.7 % (40.0-76.0); PLATELET 102 x1000/uL (130-400); RED BLOOD CELL COUNT 3.68 mill/uL (4.2-5.4); RED CELL DISTRIBUTION WIDTH 14.7 % (11.6-14.6); WHITE BLOOD COUNT 3.2 x1000/uL (4.5-11.0)
[2022-12-14 14:23] LABS: INDEX HEMOLYSI 1 (1-3); INDEX ICTERIC 1 (1-4); INDEX LIPEMIC 1 (1-3)
[2022-12-14 14:42] LABS: CLARITY URINE CLOUDY (CLEAR); COLOR URINE DARK YELLOW (YELLOW); GLUCOSE URINE NEGATIVE (NEGATIVE); KETONES URINE NEGATIVE (NEGATIVE); LEUKOCYTE ESTERASE URINE 2+ (NEGATIVE); NITRITE URINE NEGATIVE (NEGATIVE); OCCULT BLOOD URINE NEGATIVE (NEGATIVE); PH URINE 6.5 (4.5-8.0); PROTEIN URINE NEGATIVE (NEGATIVE); SPECIFIC GRAVITY URINE 1.011 (1.005-1.030)
[2022-12-14 14:48] LABS: CARBON DIOXIDE 25 mEq/L (21-32); CHLORIDE 109 mEq/L (98-107); POTASSIUM 3.4 mEq/L (3.5-5.1); SODIUM 141 mEq/L (136-145)
[2022-12-14 14:49] LABS: ALANINE AMINOTRANSFERASE 69 IU/L (13-61); ALBUMIN 3.3 g/dL (3.4-5.0); ASPARTATE AMINOTRANSFERASE 287 IU/L (15-37); CALCIUM 8.3 mg/dL (8.5-10.1); CREATININE 0.7 mg/dL (0.6-1.3); GLUCOSE 94 mg/dL (70-105); PROTEIN TOTAL 8.6 g/dL (6.0-8.3); UREA NITROGEN BLOOD 8 mg/dL (7-21)
[2022-12-14 15:10] LABS: BACTERIA URINE TRACE; SQUAMOUS EPITHELIAL CELL URINE 2+ /lpf (RARE/1+)
[2022-12-14 15:11] LABS: TRICHOMONAS URINE FEW
[2022-12-14 15:12] LABS: RBC URINE 0-2 /hpf (0-2); WBC URINE 0-2 /hpf (0-2)
[2022-12-14 15:24] LABS: INR 1.2
== END 2022-12-14 18:16 | disposition left against medical advice (07) ==
LOC: ER 12:32
DX: R10.9 Unspecified abdominal pain (principal); M54.50 Low back pain, unspecified; K92.1 Melena; F10.20 Alcohol dependence, uncomplicated; F41.9 Anxiety disorder, unspecified; F12.90 Cannabis use, unspecified, uncomplicated; F19.90 Other psychoactive substance use, unspecified, uncomplicated; Z98.890 Other specified postprocedural states; Z79.899 Other long term (current) drug therapy; Y90.9 Presence of alcohol in blood, level not specified
CPT/HCPCS: 36415; 71045; 74176; 80053; 81003; 82270; 85025; 86850; 86900; 93005; 99285

== ENCOUNTER 2022-12-14 19:05 | Emergency (ER) | payer OTHER ==
[~2022-12-14] VITALS: Ht 165.1 cm; Wt 56.1 kg
[2022-12-14 19:41] VITALS: BP 117/86; PULSE 91; RESP 18; TEMP 98.2; O2SAT 96
== END 2022-12-14 22:33 | disposition left against medical advice (07) ==
LOC: ER 19:05
DX: K92.1 Melena (principal); Z53.21 Procedure and treatment not carried out due to patient leaving prior to being seen by health care provider
CPT/HCPCS: 99281

== ENCOUNTER 2023-04-20 17:37 | Emergency (ER) | payer OTHER ==
[~2023-04-20] VITALS: Ht 162.6 cm; Wt 63.0 kg
[~2023-04-20 17:37] MED LIST changes: -AMOX-424 MT; -AMOX-494 MT; -CEPH500C2 MT; -CYCL5TAB MT; -DOXY100C5 MT; -ERYT1OIN6 EACHEYE; -IBUP-2028 MT; -IBUP-2030 MT; -METR-167 MT; -NAPR-681 PO; -P50 MT; -POTA-205 MT; -SULF1TAB48 PO
[2023-04-20 17:44] VITALS: TEMP 98.6; O2SAT 99
[2023-04-20] MEDS ORDERED: KETOROLAC 60MG/2ML VIAL IM ONE (18:15)
[2023-04-20 19:04] VITALS: BP 116/80; PULSE 98; RESP 18
[2023-04-20] MEDS ORDERED: TOPUD MT (19:10)
== END 2023-04-20 19:27 | disposition home or self-care (01) ==
LOC: ER 17:37
DX: M19.011 Primary osteoarthritis, right shoulder (principal); F17.200 Nicotine dependence, unspecified, uncomplicated; F12.10 Cannabis abuse, uncomplicated; Z79.899 Other long term (current) drug therapy
CPT/HCPCS: 99283; 73030; 96372; J1885

== ENCOUNTER 2024-01-11 11:39 | Emergency (ER) | payer OTHER ==
[~2024-01-11] VITALS: Ht 154.9 cm; Wt 54.4 kg
[~2024-01-11 11:39] MED LIST changes: +TOPUD MT
[2024-01-11 12:00] VITALS: BP 122/73; PULSE 99; RESP 18; TEMP 98.3; O2SAT 98
[2024-01-11] MEDS: CYCLOBENZAPRINE 10MG TABLET PO SCH (15:11)
== END 2024-01-11 16:15 ==
LOC: ER 12:51
DX: M79.643 Pain in unspecified hand (principal); Z53.21 Procedure and treatment not carried out due to patient leaving prior to being seen by health care provider